=== PATIENT | female | born 2000 | race Two or more races ===

== ENCOUNTER 2023-08-15 10:42 | Inpatient (IN) | payer OTHER ==
[~2023-08-15] VITALS: Ht 165.1 cm; Wt 59.9 kg
[2023-08-15] MEDS ORDERED: KETOROLAC TROMETHAMINE 60 MG VIAL IM ONE (11:15)
[2023-08-15 14:01] LABS: HEMATOCRIT 39.6 % (36.0-45.00); HEMOGLOBIN 13.7 g/dL (12.0-15.00); MEAN CORPUSCULAR HEMOGLOBIN 29.1 pg (27.00-32.0); MEAN CORPUSCULAR HGB CONC 34.6 g/dl (32.0-36.0); PLATELET COUNT 279 K/uL (150-450); RED BLOOD COUNT 4.71 M/uL (4.00-6.00); RED CELL DISTRIBUTION WIDTH 12.7 % (11.5-14.5)
[2023-08-15] MEDS ORDERED: CEFTRIAXONE SODIUM 2,000 MG in 0.9 % SODIUM CHLORIDE 100 ML IV SCH (17:27)
[2023-08-15] MEDS ORDERED: ACETAMINOPHEN 500 MG GEL..CAP PO PRN (17:30)
[2023-08-15] MEDS ORDERED: 0.9 % SODIUM CHLORIDE 1,000 ML IV SCH ×2 (17:45→20:15)
[2023-08-15] MEDS ORDERED: KETOROLAC TROMETHAMINE 30 MG VIAL IM STA (18:50)
[2023-08-15 19:41] LABS: INR 1.06; PROTHROMBIN TIME 11.1 SECONDS (9.0-11.5)
[2023-08-15 19:46] LABS: ALBUMIN 4.1 gm/dL (3.4-5.0); BILIRUBIN TOTAL 0.59 mg/dL (0.3-1.2); CALCIUM 9.4 mg/dL (8.5-10.1); CREATININE SERUM 0.9 mg/dL (0.55-1.02); GFR 77.59; GLOBULINA 4.2 G/DL (2.4-3.5); POTASSIUM 4.14 mEq/L (3.5-5.1); TOTAL PROTEIN 8.3 gm/dL (6.4-8.2)
[2023-08-15 19:55] LABS: C-REACTIVE PROTEIN 13.1 MG/DL (0.00-0.29)
[2023-08-15 19:56] LABS: PH,URINE 7.5 (5.0-8.0); URINE APPEARANCE Turbid; URINE BILIRRUBIN Negative (NEGATIVE); URINE BLOOD NHT; URINE COLOR Dark Yellow; URINE GLUCOSE Negative (NEGATIVE); URINE LEUKOCYTE Large; URINE NITRATE Negative; URINE PROTEIN 30 (NEGATIVE)
[2023-08-15 20:00] LABS: URINE BACTERIA 6079.4 uL (0.0-1933); URINE EPITHELIAL CELLS 47.7 uL (0.0-38.8); URINE RBC 236.3 uL (0.0-20.8); URINE WBC 1089.1 uL (0.0-23.2)
[2023-08-15] MEDS ORDERED: VANCOMYCIN HCL 1,000 MG VIAL IV SCH (20:10)
[2023-08-15 20:56] LABS: URINE CRYSTALS MANY /HPF
[2023-08-16] MEDS ORDERED: KETOROLAC TROMETHAMINE 15 MG VIAL IU SCH (03:00)
[2023-08-16] MEDS ORDERED: FAMOTIDINE/PF 20 MG in 0.9 % SODIUM CHLORIDE 8 ML IV PUSH SCH (09:00)
[2023-08-16] MEDS ORDERED: KETOROLAC TROMETHAMINE 30 MG VIAL IV SCH (13:00)
[2023-08-17] MEDS ORDERED: KETOROLAC TROMETHAMINE 30 MG VIAL IV PRN (08:15)
[2023-08-17] MEDS ORDERED: PANTOPRAZOLE SODIUM 40 MG/VIAL VIAL IV SCH (09:00)
[2023-08-18] MEDS ORDERED: LINEZOLID IN DEXTROSE 5% 300 ML IV SCH (18:02)
[2023-08-18] MEDS ORDERED: VANCOMYCIN HCL 1,000 MG VIAL IV SCH (21:00)
[2023-08-19 10:27] LABS: HEMATOCRIT 36.9 % (36.0-45.00); HEMOGLOBIN 12.5 g/dL (12.0-15.00); MEAN CELL VOLUME 83.2 fL (80.00-100.00); MEAN CORPUSCULAR HEMOGLOBIN 28.3 pg (27.00-32.0); PLATELET COUNT 304 K/uL (150-450); RED BLOOD COUNT 4.44 M/uL (4.00-6.00); RED CELL DISTRIBUTION WIDTH 12.6 % (11.5-14.5)
[2023-08-20] MEDS ORDERED: PANTOPRAZOLE SODIUM 40 MG TABLET.DR PO SCH (09:00)
[2023-08-20] MEDS ORDERED: LINEZOLID 600 MG TABLET PO SCH (21:00)
== END 2023-08-22 09:52 | disposition home or self-care (01) | DRG 602 ==
LOC: ER 10:43 → MEDI 20:30 → SEC-K 20:30 → MEDI 08-16 10:50
PROVIDERS: General Practice; Internal Medicine; ADMIT Internal Medicine; ATTEND Internal Medicine
PROC: BP2 Imaging, Non-Axial Upper Bones, Computerized Tomography (CT Scan) (ICD-10-PCS; 2023-08-15)
PROC: BP3 Imaging, Non-Axial Upper Bones, Magnetic Resonance Imaging (MRI) (ICD-10-PCS; principal; 2023-08-16)
DX: L03.114 Cellulitis of left upper limb (principal); A41.9 Sepsis, unspecified organism; M65.9 Synovitis and tenosynovitis, unspecified
CPT/HCPCS: 73225